=== PATIENT | male | born 1945 | race Caucasian/White ===

== ENCOUNTER → 2024-04-04 08:18 | Outpatient (REF) | payer MEDICARE, SELFPAY | LOC: RAD 08:18 | PROVIDERS: ATTENDING PHYSICIAN Surgery Vascular Surgery; FAMILY PHYSICIAN Family Medicine | DX: I71.43 Infrarenal abdominal aortic aneurysm, without rupture (principal) | CPT/HCPCS: 71275; 74174; Q9967 ==

== ENCOUNTER 2025-02-04 19:15 | Emergency (ER) | payer OTHER, SELFPAY ==
[2025-02-04 19:24] VITALS: BP 146/70
--- NOTE | 2025-02-04 19:59 | ED.SKININJ ---
HPI-Injury
General
Chief Complaint: Bite
Source: patient
Time Seen by Provider: 02/04/25 19:54
History of Present Illness-Injury
Initial Injury comments:
79-year-old male with past medical history of emphysema presenting to the emergency department for evaluation after he was bit on the left palm by his neighbors dog earlier this morning around 8 AM. Dog is domesticated, patient believes rabies
vaccines are up-to-date, he states his tetanus vaccine is not up-to-date. He notes the 2 small puncture wounds to the left hand but no other injuries were sustained. Patient is right-hand dominant.
Past History
Past History
ED Past Medical History: COPD and Psychiatric (Anxiety, depression)
ED Past Surgical History: Other (Hernia repair)
Social History
Tobacco: Smoker
Alcohol: Former
Drug: None
Personal:
Living: alone
Employment: Other (Semiretired )
Review of Systems
Review of Systems
All Other Systems: ROS reviewed and negative except as documented in HPI and ROS
Phy Exam
Physical Exam
Physical Exam:
GENERAL: Alert , in no apparent distress
EYE: conjunctiva clear
Head: Normocephalic atraumatic
NECK: Supple,
ENT: mmm.
LUNGS: no acute respiratory distress
NEUROLOGICAL: Alert and oriented
SKIN: Warm and dry, 2 small puncture wounds with skin already approximated to the left thenar eminence, no active bleeding, no surrounding erythema
MUSCULOSKELETAL: well perfused.
PSYCH: Normal and appropriate interaction.
Scores
Heart Failure Risk
Heart Failure Risk Score: Not Applicable
Heart Score for Chest Pain Patients
STEMI patient?: Not applicable
Withdrawal Assessment of Alcohol
Withdrawal Assessment Completed?: Not applicable
Course
Orders/Labs/Results
Orders:
Orders
02/04/25 19:59
Tetanus/Diphth/Acelpertussis [Adacel] 0.5 ml IM .ONCE ONE
Vital Signs
Initial and Last Documented VS:
Initial Vital Signs
Temp Pulse Resp BP Pulse Ox
98.1 F 66 19 146/70 95
02/04/25 19:24 02/04/25 19:24 02/04/25 19:24 02/04/25 19:24 02/04/25 19:24
Last Documented Vital Signs
Temp Pulse Resp BP Pulse Ox
98.1 F 66 19 146/70 95
02/04/25 19:24 02/04/25 19:24 02/04/25 19:24 02/04/25 19:24 02/04/25 19:24
MDM/Problems Addressed
Differential Diagnosis Includes:
Superficial bite, no concern for tendon or nerve injury, no signs to suggest current infectious process
MDM/Problems Addressed:
79-year-old male presenting to the ER for evaluation after he was accidentally bit on the hand by his neighbors dog. Patient believes the dog's vaccinations are up-to-date, this is a domesticated dog. Small puncture wounds noted. These were
already cleaned out prior to patient coming to the ER. Will update patient's tetanus. Will for infection with cefuroxime and Flagyl. Patient does have a penicillin allergy. He was advised on return precautions. Stable for discharge home.
*Pulse Oximetry
Patient hypoxic: no
*Critical Care Note
Total Time (30-74mins, 75-104mins- exclusive of procedures): Not Applicable
ED Attending Note
-
Portions of this chart may have been created with voice recognition software.� Occasional wrong word or��sound alike� substitutions may have occurred due to the inherent limitations of voice recognition software.
Discharge Plan
Departure
Patient Disposition: Home (Routine Discharge)
Date of Disposition: 02/04/25
Time of Disposition: 19:59
Patient with high blood pressure during this ER visit?: No
Discharge Problem:
Dog bite of left hand
Instructions: Animal Bites (DC)
Prescriptions:
New
cefuroxime axetil 500 mg tablet
500 mg PO BID 5 Days Qty: 10 0RF
metronidazole 500 mg tablet
500 mg PO TID 5 Days Qty: 15 0RF
No Action
albuterol sulfate 90 MCG/PUFF HFA aerosol inhaler
1 puff inhalation Q4HPRN PRN (Reason: SOB)
fluticasone propion-salmeterol [Advair Diskus] 250 MCG/50 MCG blister with device
1 puff inhalation BID Qty: 1 1RF
lorazepam 0.5 MG tablet
0.5 mg PO BID
Vitamin A
1 tab PO DAILY
Vitamin B Complex
1 tab PO DAILY
Vitamin C:
1 tab PO DAILY
lorazepam 0.5 MG tablet
0.25 mg PO BID Qty: 21 0RF
Rx Instructions:
0.25mg BID x 7 days and then 0.25mg daily for 7 days
Interventions
Interventions:
*Risk Screen - Suicide Last Done: 02/04/25 19:24
*General Assessment Last Done: 02/04/25 20:27
*Neglect/Abuse Screening Last Done: 02/04/25 19:24
*ED- Fall Risk Assessment Last Done: 02/04/25 20:27
*Nursing Disposition Last Done: 02/04/25 20:27
ED-Skin Assessment Last Done: 02/04/25 20:27
Discharge Date and Time
Discharge Date/Time: 02/04/25 20:28
Print Language: GEORGIAN
[2025-02-04] MEDS: ADACEL 0.5 ML IM (20:08)
== END 2025-02-04 20:28 | disposition home or self-care (01) ==
LOC: EMR 19:15
PROVIDERS: EMERGENCY PHYSICIAN Student in an Organized Health Care Education/Training Program; FAMILY PHYSICIAN Family Medicine
DX: S61.432A Puncture wound without foreign body of left hand, initial encounter (principal); W54.0XXA Bitten by dog, initial encounter; F17.200 Nicotine dependence, unspecified, uncomplicated; J44.9 Chronic obstructive pulmonary disease, unspecified; Z23 Encounter for immunization
CPT/HCPCS: 90471; 99282; 90715